=== PATIENT | female | born 1960 | race Caucasian/White ===

== ENCOUNTER 2023-12-18 20:11 | Emergency (ER) | payer BC, SELFPAY ==
[2023-12-18 20:15] VITALS: BP 120/63
[2023-12-18 20:17] VITALS: BMI 37.1
[2023-12-18 20:51] LABS: % Basophils 0.7 % (0-2); % Immature Granulocytes 0.3 % (0-0.5); % Lymphocytes 22.1 % (20.5-51.1); % Monocytes 6.6 % (1.7-9.3); % Neutrophils 69.3 % (42.2-75.2); Absolute Basophils 0.1 10^3/uL (0-0.2); Absolute Eosinophils 0.1 10^3/uL (0-0.7); Absolute Lymphocytes 2.6 10^3/uL (1.2-3.4); Absolute Monocytes 0.8 10^3/uL (0.1-0.6); Absolute Neutrophils 8.2 10^3/uL (1.4-6.5); Hematocrit 38.1 % (37.0-47.0); Hemoglobin 12.8 g/dL (12.0-16.0); Mean Corp Hgb Conc. 33.6 g/dL (33.0-37.0); Mean Corpuscular Hgb 27.1 pg (27.0-31.0); Mean Corpuscular Volume 80.7 fL (81.0-99.0); Mean Platelet Volume 10.4 fL (7.4-10.4); Nucleated Red Blood Cells % 0 %; Platelet Count 366 10^3/uL (130-400); Red Blood Cell Count 4.72 10^6/uL (4.20-5.40); Red Cell Dist. Width 14.7 % (11.5-14.5); White Blood Cell Count 11.8 10^3/uL (4.8-10.8)
[2023-12-18 21:10] LABS: ALT (SGPT) 32 U/L (0-35); AST (SGOT) 31 U/L (14-36); Albumin 4.2 g/dl (3.5-5.0); Alkaline Phosphatase 112 U/L (38-126); Blood Urea Nitrogen 20 mg/dl (7-17); Calcium 9.3 mg/dl (8.4-10.2); Carbon Dioxide 26 mmol/L (22-30); Chloride 105 mmol/L (98-107); Estimated Creatinine Clearance 92 ml/min; Glucose 126 mg/dl (70-99); Potassium 4.3 mmol/L (3.5-5.1); Sodium 139 mmol/L (135-145); Total Bilirubin 0.3 mg/dl (0.2-1.3); Total Protein 6.2 g/dl (6.3-8.2); eGFR > 60.00
[2023-12-18 21:16] LABS: Troponin I < 0.012 ng/ml
[2023-12-18 22:00] VITALS: BP 135/84
--- NOTE | 2023-12-18 22:17 | ED.GENMED ---
History of Present Illness
General
Chief Complaint: Chest Pain
Source: patient
Time Seen by Provider: 12/18/23 21:57
History of Present Illness
History of Present Illness:
63-year-old female presents to the emergency room complaining of chest pain. Patient developed an episode of chest pain this evening while walking. Pain radiates to her neck into her shoulders and was associated with diaphoresis. 911 was called.
Chest pain was alleviated with 1 nitro. She also received 4 baby aspirin. Patient has a history of asthma. Over the past few days has been experiencing some shortness of breath with exertion. She associates this with her asthma and has been
using her inhaler more frequently. No fever. Mild cough. She does have a significant family history of coronary artery disease with both parents and her brother all having had bypass and stents.
Past History
Past History
ED Past Medical History: Asthma, Hypothyroidism, Other (Migraines) and Other (kidney stone)
ED Past Surgical History: Cholecystectomy, and Urological
Social History
Tobacco: Non-smoker
Alcohol: None
Drug: None
Personal:
Living: with family
Employment: Employed
Family History
Family History: Other (Noncontributory)
Phy Exam
Physical Exam
Physical Exam:
General: Awake, Alert, Oriented X3. No acute distress.
Vitals: unremarkable
Head: Atraumatic
Eyes: Pupils equal, EOMI
Throat: Airway intact, no exudates
Neck: Trachea midline
Lungs: Clear and equal b/l
Heart: Regular rate, no murmurs
Abd: Soft, Nontender, No pulsatile mass
Neuro: Nonfocal
Skin: Warm, dry, no rash
Extremities: pulses equal b/l, no edema
Scores
Heart Score for Chest Pain Patients
STEMI patient?: No
History: Moderately Suspicious
ECG: Normal
Age: >45 - <65 years
Risk Factors: 1 or 2 Risk Factors
Troponin: </= Normal Limit
Heart Score for Chest Pain Patients: 3
Heart Score Risk: 2.5% MACE over next 6 weeks
Course
Orders/Labs/Results
Orders:
Orders
12/18/23 20:17
Electrocardiogram (*1) Urgent
Reason for Study: Chest Pain
EKG- Treatment ONCE
12/18/23 20:44
Complete Blood Count/With Diff Urgent
Comprehensive Metabolic Panel Urgent
Troponin I Urgent
12/18/23 22:13
CR Chest - 2 Views Urgent
Comment:
Reason For Exam: chest pain
12/18/23 22:58
Alprazolam [Xanax] 0.5 mg .ROUTE .STK-MED ONE
12/18/23 22:59
Alprazolam [Xanax] 0.5 mg PO NOW STA
12/18/23 23:40
Troponin I Urgent
Abnormal Lab Results
12/18/23
20:44
WBC 11.8 H 10^3/uL
(4.8-10.8)
MCV 80.7 L fL
(81.0-99.0)
RDW 14.7 H %
(11.5-14.5)
Absolute Neuts (auto) 8.2 H 10^3/uL
(1.4-6.5)
Absolute Monos (auto) 0.8 H 10^3/uL
(0.1-0.6)
BUN 20 H mg/dl
(7-17)
Glucose 126 H mg/dl
(70-99)
Total Protein 6.2 L g/dl
(6.3-8.2)
12/18/23 20:44
12/18/23 20:44
Vital Signs
Initial and Last Documented VS:
Initial Vital Signs
BP
120/63
12/18/23 20:15
Last Documented Vital Signs
Pulse Resp BP Pulse Ox
77 26 135/84 96
12/19/23 00:45 12/19/23 00:45 12/18/23 23:00 12/19/23 00:00
MDM/Problems Addressed
Differential Diagnosis Includes:
angina, chest wall pain, ptx
MDM/Problems Addressed:
Patient presents after an episode of chest pain. Description of chest discomfort is concerning for angina. Fortunately there are no acute ischemic changes on her EKG. Her troponin is normal x 2. She remained pain-free here in the emergency room.
We will put the patient on the chest pain hotline. She understands to return for any further symptoms. I do not hear any wheezing and I doubt that her symptoms are related to bronchospasm.
Chronic conditions affecting care: Asthma
*Radiology
Radiology exam reviewed: preliminary read by ED provider (No acute disease by my personal review of the chest x-ray)
*Pulse Oximetry
Patient hypoxic: no
*EKG
Interpretation: normal
Heart Rate: 95
Rate: normal
Rhythm: sinus
[place]: normal axis
Interval: normal interval
QRS Pattern: normal QRS
Ischemia: no ischemia
*Capture Manager Interpretation
Rate: normal
Interpretation: normal
Rhythm: sinus
*Critical Care Note
Total Time (30-74mins, 75-104mins- exclusive of procedures): Not Applicable
ED Attending Note
-
Portions of this chart may have been created with voice recognition software.� Occasional wrong word or��sound alike� substitutions may have occurred due to the inherent limitations of voice recognition software.
Discharge Plan
Departure
Patient Disposition: Home (Routine Discharge)
Date of Disposition: 12/19/23
Time of Disposition: 00:41
Patient with high blood pressure during this ER visit?: Yes
Condition: Good
Discharge Problem:
Chest pain
Instructions: Chest Pain CBC Follow Up
Prescriptions:
No Action
alprazolam 0.5 MG tablet
0.5 mg PO HS PRN (Reason: pain)
citalopram 20 MG tablet
30 mg PO DAILY
temazepam [Restoril] 30 MG capsule
30 mg PO HS
[employer]air [employer]ohaler 14 GM aerosol breath activated
2 puff PO Q6 PRN (Reason: breathing)
cholecalciferol (vitamin D3) [Vitamin D3] 1,000 UNIT tablet
25,000 mg PO WEEKLY
carisoprodol [Soma] 350 mg Tablet
350 mg PO HS PRN (Reason: sleep)
tramadol 50 mg Tablet
50 mg PO BID PRN (Reason: pain)
beclomethasone dipropionate 80 mcg/actuation Aerosol
80 mcg INHALATION BID
niacin 500 mg Tablet
500 mg PO DAILY
Referrals:
Fredis Gomez MD [Active] -
Susana Longoria CRNP [Family Provider] -
Interventions
Interventions:
*Risk Screen - Suicide Last Done: 12/18/23 20:27
*General Assessment Last Done: 12/18/23 20:27
*Neglect/Abuse Screening Last Done: 12/18/23 20:27
ED- Fall Risk Assessment Last Done: 12/18/23 21:04
*ED COVID-19 Vaccine History Last Done: 12/18/23 20:27
*Nursing Disposition Last Done: 12/19/23 00:58
ED- Cardiac Assessment Last Done: 12/18/23 21:04
Discharge Date and Time
Discharge Date/Time: 12/19/23 01:00
Print Language: CHINESE
[2023-12-18 22:53] VITALS: BP 146/85
[2023-12-18 23:00] VITALS: BP 135/84
[2023-12-18] MEDS: XANAX 0.5 MG PO (23:00)
[2023-12-19 00:21] LABS: Troponin I < 0.012 ng/ml
== END 2023-12-19 01:00 | disposition home or self-care (01) ==
LOC: EMR 20:11
PROVIDERS: Emergency Medicine; EMERGENCY PHYSICIAN Emergency Medicine; FAMILY PHYSICIAN Nurse Practitioner Family
DX: R07.89 Other chest pain (principal); R03.0 Elevated blood-pressure reading, without diagnosis of hypertension; J45.909 Unspecified asthma, uncomplicated
CPT/HCPCS: 99285; 71046; 80053; 84484; 85025; 93005

== ENCOUNTER → 2024-02-15 08:03 | Outpatient (REF) | payer BC, SELFPAY | LOC: PET 08:03 | PROVIDERS: ATTENDING PHYSICIAN Internal Medicine Cardiovascular Disease | DX: I34.0 Nonrheumatic mitral (valve) insufficiency (principal); R07.89 Other chest pain | CPT/HCPCS: 78431; A9555; J2785 ==